=== PATIENT | male | born 1965 | race African-American/Black ===

== ENCOUNTER 2017-03-24 10:00 | Outpatient (CLI) | payer BC ==
--- NOTE | 2017-03-24 13:49 | Diagnostic Imaging Report ---
Indication: Frequent urination. Prostate enlargement Technique: Grayscale and duplex Doppler imaging of the kidneys performed. Comparison: None Findings: The size, contour, and echogenicity of both kidneys are within normal limits. Both kidneys measure between 11 and 12 cm in length. There is no hydronephrosis. The IVC is unremarkable. Prostate measures 4.1 x 3.8 x 3.7 cm for a volume of 30 cc. There is minimal postvoid residual within the bladder lumen. IMPRESSION: Borderline prostate enlargement. Negative examination otherwise
== END 2017-03-24 12:00 | disposition home or self-care (01) ==
LOC: ULS 10:00
DX: R35.0 Frequency of micturition (principal); N40.0 Benign prostatic hyperplasia without lower urinary tract symptoms
CPT/HCPCS: 76775